=== PATIENT | female | born 1970 | race Caucasian/White ===

== ENCOUNTER → 2018-08-31 | Outpatient (CLI) | payer OTHER ==
[~2018-08-31] MED LIST: CALC-18 PO; CHOL400C10 PO; CYAN100058; EPIN0.3P15 IM; ESCI5TAB10 PO; HYDR-3078 PO; LACT1CAP6 PO; LEVO1TAB16 PO; NAP250 PO; OMEG500C7 PO
--- NOTE | 2018-09-01 17:14 | RADIOLOGY IMAGING REPORT ---
FACILITY: [facility] PATIENT NAME: XAVI SIDDIQUI : [id number] MR: [id number]: [id number] EXAM DATE: [id number] ORDERING PHYSICIAN: DAI MELGAR TECHNOLOGIST: Keena Romero PROCEDURE:BILATERAL DIGITAL SCREENING MAMMOGRAM WITH CAD ASSISTED INTERPRETATION & 3D TOMOSYNTHESIS COMPARISON:Prior mammograms 05/27/17, 05/05/13, 01/31/13. INDICATIONS:SCREENING FINDINGS: The breasts are heterogeneously dense which can obscure small masses. The parenchymal pattern has remained stable allowing for difference in mammographic technique & patient positioning. DIAGNOSTIC CATEGORY 1--NEGATIVE. RECOMMENDATIONS: ROUTINE MAMMOGRAM AND CLINICAL EVALUATION. IMPRESSION: BIRADS 1: Negative. No significant abnormality is seen. Dictated by: Yadira Mckeon M.D. on 08/31/2018 at 16:38 Transcribed by: TON on 09/01/2018 at 8:09 Approved by: Yadira Mckeon M.D. on 09/01/2018 at 17:12 [facility]
== END ==
LOC: MAMO 01:10
PROVIDERS: ATTEND Nurse Practitioner Family
DX: Z12.31 Encounter for screening mammogram for malignant neoplasm of breast (principal)
CPT/HCPCS: 77063; 77067

== ENCOUNTER → 2018-09-30 | Day surgery (SDC) | payer OTHER ==
[2018-09-30] VITALS (7 sets, daily range): BP systolic 76–88; BP diastolic 42–60
[~2018-09-30] VITALS: Ht 172.7 cm; Wt 55.8 kg
[~2018-09-30] MED LIST changes: -CYAN100058; +CYAN100058 PO; +GINK60TA6 PO; +LIDOCAINE MPF 1% 5 ML VIAL ONE; +LIDOCAINE/SOD BICARB 8.4% SYR ID ONE; +NORMOSOL R SOLN(*) 1000 ML BAG 1,000 ML IV PRN; +PROPOFOL EMUL(*) 10MG/ML 20 ML 40 ML ONE
--- NOTE | 2018-09-30 09:59 | Short(Outpt) Discharge Summary ---
Discharge Summary Reason for Hosp/Final Diag: (1) Encounter for screening colonoscopy Status: Acute Hospital Course & Plan: 47 yo f presents for screening colonoscopy. she to lerated the procedure well and there were no complications. path pending. she will be discharged home when criteria met. Departure Discharge to: Home Discharge Instructions Home Meds Reported Medications Ginkgo Biloba (GINKGO) 60 Mg Tablet, 60 MG PO QDAY 09/19/18 Cyanocobalamin (Vitamin B-12) (Vitamin B-12) Unknown Strength Capsule, PO QDAY 08/17/18 Lactobacillus Combination No.4 (PROBIOTIC) 1 Each Capsule, 1 EACH PO QDAY, CAPSULE 08/17/18 [place]-3 Fatty Acids (FISH OIL) 500 Mg Capsule, 500 MG PO DAILY, CAPSULE 06/19/14 Cholecalciferol (Vitamin D3) (VITAMIN D) 400 Unit Capsule, 400 UNIT PO DAILY, CAPSULE 06/19/14 Diet: Regular Activity: As Tolerated Special Instructions: we will call you results in 10 days. VAUGHN MO Sep 30, 2018 09:59
== END ==
LOC: OR 00:48
PROVIDERS: ATTEND Surgery
DX: Z12.11 Encounter for screening for malignant neoplasm of colon (principal); D12.4 Benign neoplasm of descending colon; D12.5 Benign neoplasm of sigmoid colon; Z80.0 Family history of malignant neoplasm of digestive organs
CPT/HCPCS: 00812; 45385; 88305; J2001; J2704